=== PATIENT | male | born 1965 | race Caucasian/White ===

== ENCOUNTER 2018-10-22 16:05 | Inpatient (IN) | payer OTHER, MEDICAID ==
[2018-10-22 19:34] LABS: ADD MAN DIFF? NO
[2018-10-22 19:35] LABS: WHITE BLOOD COUNT 8.9 10^3/ul (4.8-10.8)
[2018-10-22 19:35] LABS: BASOPHIL # 0.1 10^3/ul (0.0-0.1); BASOPHILS % 0.7 % (0.0-2.0); EOSINOPHILS # 0.3 10^3/ul (0.0-0.5); HEMATOCRIT 43.9 % (42.0-52.0); HEMOGLOBIN 14.1 g/dl (14.0-18.0); LYMPHOCYTES # 2.1 10^3/ul (0.8-2.9); LYMPHOCYTES % 23.1 % (15.0-51.0); MEAN CORPUSCULAR HEMOGLOBIN 29.3 pg (29.0-33.0); MEAN CORPUSCULAR HGB CONC 32.1 g/dl (32.0-37.0); MEAN CORPUSCULAR VOLUME 91.1 fl (82.0-101.0); MEAN PLATELET VOLUME 9.5 fl (7.4-10.4); MONOCYTE # 0.6 10^3/ul (0.3-0.9); NEUTROPHIL # 5.9 10^3/ul (1.6-7.5); NEUTROPHILS % 65.6 % (39.0-77.0); PLATELET COUNT 362 10^3/UL (140-415); RED BLOOD COUNT 4.82 10^6/ul (4.70-6.10); RED CELL DISTRIBUTION WIDTH 12.4 % (11.5-14.5)
[2018-10-22] MEDS: PIPER-TAZO 3.375 GM IV (PMX) 100 ML IVPB (19:42)
[2018-10-22] MEDS: SOD CHLORIDE 0.9% 500 ML IV (19:42)
[2018-10-22] MEDS: KETOROLAC 15 MG INJ IV (19:42)
[2018-10-22 19:53] LABS: ALANINE AMINOTRANSFERASE 21 IU/L (13-69); ALBUMIN 4.3 g/dl (3.3-4.9); ALBUMIN/GLOBULIN RATIO 1.13; ALKALINE PHOSPHATASE 116 IU/L (42-121); ANION GAP 8 (5-13); ASPARTATE AMINO TRANSFERASE 19 IU/L (15-46); BILIRUBIN,INDIRECT 0.6 mg/dl (0-1.1); BILIRUBIN,TOTAL 0.6 mg/dl (0.2-1.3); BLOOD UREA NITROGEN 25 mg/dl (7-20); CALCIUM 9.5 mg/dl (8.4-10.2); CARBON DIOXIDE 26 mmol/L (21-31); CHLORIDE 105 mmol/L (97-110); CREATININE 1.14 mg/dl (0.61-1.24); Estimated GFR > 60 mL/min (>60); GLUCOSE 96 mg/dl (70-220); LIPASE 150 U/L (23-300); POTASSIUM 4.2 mmol/L (3.5-5.1); SODIUM 139 mmol/L (135-144); TOTAL PROTEIN 8.1 g/dl (6.1-8.1)
[2018-10-22] MEDS: VANCOMYCIN 1 GM (PMX) 250 ML IVPB (19:54)
[2018-10-22 19:55] LABS: INR 0.89; PROTIME 12.1 Sec (11.9-14.9); PT RATIO 0.9
[2018-10-22 19:56] LABS: PARTIAL THROMBOPLASTIN TIME 29.3 Sec (23.0-35.0)
[2018-10-22] MEDS ORDERED: ZOLPIDEM 5 MG TAB PO (23:30)
[2018-10-22] MEDS ORDERED: ACETAMINOPHEN 325 MG TAB PO (23:30)
[2018-10-23] MEDS: CEFTRIAXONE 1 GM/50 ML (PMX) 50 ML IVPB ×2 (00:51→23:45)
[2018-10-23] MEDS: ENOXAPARIN 40 MG/0.4 ML SYG SC ×2 (01:00→09:00)
[2018-10-23] MEDS ORDERED: PANTOPRAZOLE 40 MG INJ IV (06:00)
[2018-10-23 06:12] LABS: ADD MAN DIFF? NO
[2018-10-23 06:16] LABS: WHITE BLOOD COUNT 6.8 10^3/ul (4.8-10.8)
[2018-10-23 06:16] LABS: BASOPHIL # 0.1 10^3/ul (0.0-0.1); BASOPHILS % 1.2 % (0.0-2.0); EOSINOPHILS # 0.3 10^3/ul (0.0-0.5); EOSINOPHILS % 4.3 % (0.0-7.0); HEMATOCRIT 43.2 % (42.0-52.0); HEMOGLOBIN 13.4 g/dl (14.0-18.0); LYMPHOCYTES # 1.9 10^3/ul (0.8-2.9); LYMPHOCYTES % 27.8 % (15.0-51.0); MEAN CORPUSCULAR HEMOGLOBIN 28.9 pg (29.0-33.0); MEAN CORPUSCULAR VOLUME 93.1 fl (82.0-101.0); MEAN PLATELET VOLUME 9.5 fl (7.4-10.4); MONOCYTE # 0.8 10^3/ul (0.3-0.9); MONOCYTES % 11.8 % (0.0-11.0); NEUTROPHIL # 3.7 10^3/ul (1.6-7.5); NEUTROPHILS % 54.5 % (39.0-77.0); PLATELET COUNT 309 10^3/UL (140-415); RED BLOOD COUNT 4.64 10^6/ul (4.70-6.10); RED CELL DISTRIBUTION WIDTH 12.4 % (11.5-14.5)
[2018-10-23 07:00] LABS: ANION GAP 8 (5-13); BLOOD UREA NITROGEN 30 mg/dl (7-20); CARBON DIOXIDE 26 mmol/L (21-31); CHLORIDE 106 mmol/L (97-110); CREATININE 1.15 mg/dl (0.61-1.24); Estimated GFR > 60 mL/min (>60); GLUCOSE 96 mg/dl (70-220); POTASSIUM 4.3 mmol/L (3.5-5.1); SODIUM 140 mmol/L (135-144)
[2018-10-23] MEDS: FAMOTIDINE 20 MG INJ IV (09:40)
[2018-10-23] MEDS ORDERED: VANCOMYCIN IV PER PHARMACY XX (13:30)
[2018-10-23] MEDS: CHOLECALCIFEROL 1,000 UNIT TAB PO (13:38)
[2018-10-23] MEDS: LISINOPRIL 20 MG TAB PO (13:38)
[2018-10-23] MEDS: NICOTINE (14 MG/24 HR) PATCH TRANSDERM (13:43)
[2018-10-23] MEDS: VANCOMYCIN HCL 2 GM in SOD CHLORIDE 0.9% 500 ML IVPB (17:54)
[2018-10-23] MEDS: morphine 2 MG INJ IV (19:50)
[2018-10-23] MEDS: FAMOTIDINE 20 MG TAB PO (21:42)
[2018-10-23] MEDS: DAKINS 0.0125%(1/40) 473 ML SOLUTION TP (22:04)
[2018-10-23] MEDS: CLOTRIMAZOLE 1% 30 GM CR TOP (22:04)
[2018-10-23] MEDS: AMMONIUM LACTATE 12% 225 GM LOT TOP (22:04)
[2018-10-24] MEDS: morphine 2 MG INJ IV ×2 (04:16→20:35)
[2018-10-24] MEDS: VANCOMYCIN 1.5 GM/NS 250 ML 250 ML IVPB ×2 (08:57→20:32)
[2018-10-24] MEDS: FAMOTIDINE 20 MG TAB PO ×2 (08:58→20:32)
[2018-10-24] MEDS: CYANOCOBALAMIN 500 MCG TAB PO (08:58)
[2018-10-24] MEDS: CHOLECALCIFEROL 1,000 UNIT TAB PO (08:58)
[2018-10-24] MEDS ORDERED: DAKINS 0.0125%(1/40) 473 ML SOLUTION TP (09:00)
[2018-10-24] MEDS ORDERED: CLOTRIMAZOLE 1% 30 GM CR TOP (09:00)
[2018-10-24] MEDS: LISINOPRIL 20 MG TAB PO (09:00)
[2018-10-24] MEDS ORDERED: AMMONIUM LACTATE 12% 225 GM LOT TOP (09:00)
[2018-10-24] MEDS: NICOTINE (14 MG/24 HR) PATCH TRANSDERM (09:01)
[2018-10-24] MEDS: ENOXAPARIN 40 MG/0.4 ML SYG SC (09:02)
[2018-10-24] MEDS: CLOTRIMAZOLE 1% 30 GM CR TOP (09:11)
[2018-10-24] MEDS: DAKINS 0.0125%(1/40) 473 ML SOLUTION TP (09:11)
[2018-10-24] MEDS: AMMONIUM LACTATE 12% 225 GM LOT TOP (09:11)
[2018-10-25] MEDS: CEFTRIAXONE 1 GM/50 ML (PMX) 50 ML IVPB (00:03)
[2018-10-25 07:31] LABS: ADD MAN DIFF? NO
[2018-10-25 07:33] LABS: BASOPHIL # 0.1 10^3/ul (0.0-0.1); EOSINOPHILS # 0.3 10^3/ul (0.0-0.5); EOSINOPHILS % 3.4 % (0.0-7.0); HEMATOCRIT 48.8 % (42.0-52.0); HEMOGLOBIN 15.3 g/dl (14.0-18.0); LYMPHOCYTES # 1.6 10^3/ul (0.8-2.9); LYMPHOCYTES % 20.2 % (15.0-51.0); MEAN CORPUSCULAR HEMOGLOBIN 28.9 pg (29.0-33.0); MEAN CORPUSCULAR HGB CONC 31.4 g/dl (32.0-37.0); MEAN CORPUSCULAR VOLUME 92.1 fl (82.0-101.0); MEAN PLATELET VOLUME 9.6 fl (7.4-10.4); MONOCYTE # 0.7 10^3/ul (0.3-0.9); MONOCYTES % 8.4 % (0.0-11.0); NEUTROPHIL # 5.2 10^3/ul (1.6-7.5); NEUTROPHILS % 66.5 % (39.0-77.0); PLATELET COUNT 330 10^3/UL (140-415); RED CELL DISTRIBUTION WIDTH 12.3 % (11.5-14.5)
[2018-10-25 07:33] LABS: WHITE BLOOD COUNT 7.8 10^3/ul (4.8-10.8)
[2018-10-25 08:07] LABS: ANION GAP 7 (5-13); BLOOD UREA NITROGEN 20 mg/dl (7-20); CALCIUM 9.8 mg/dl (8.4-10.2); CARBON DIOXIDE 33 mmol/L (21-31); CHLORIDE 101 mmol/L (97-110); CREATININE 0.95 mg/dl (0.61-1.24); Estimated GFR > 60 mL/min (>60); GLUCOSE 98 mg/dl (70-220); POTASSIUM 4.6 mmol/L (3.5-5.1); SODIUM 141 mmol/L (135-144)
[2018-10-25 08:08] LABS: MAGNESIUM 1.8 mg/dl (1.7-2.5)
[2018-10-25 08:08] LABS: PHOSPHORUS 4.1 mg/dl (2.5-4.9); VANCOMYCIN,TROUGH 10.7 ug/ml (10.0-20.0)
[2018-10-25] MEDS: CYANOCOBALAMIN 500 MCG TAB PO (08:56)
[2018-10-25] MEDS: FAMOTIDINE 20 MG TAB PO ×2 (08:56→20:17)
[2018-10-25] MEDS: CHOLECALCIFEROL 1,000 UNIT TAB PO (08:56)
[2018-10-25] MEDS: LISINOPRIL 20 MG TAB PO (08:56)
[2018-10-25] MEDS: DAKINS 0.0125%(1/40) 473 ML SOLUTION TP (08:57)
[2018-10-25] MEDS: NICOTINE (14 MG/24 HR) PATCH TRANSDERM (08:57)
[2018-10-25] MEDS: CLOTRIMAZOLE 1% 30 GM CR TOP (08:57)
[2018-10-25] MEDS: AMMONIUM LACTATE 12% 225 GM LOT TOP (08:57)
[2018-10-25] MEDS: ENOXAPARIN 40 MG/0.4 ML SYG SC (08:58)
[2018-10-25] MEDS: VANCOMYCIN 1.5 GM/NS 250 ML 250 ML IVPB ×2 (09:31→20:17)
[2018-10-25] MEDS: morphine 2 MG INJ IV ×3 (09:33→20:17)
[2018-10-26] MEDS: CEFTRIAXONE 1 GM/50 ML (PMX) 50 ML IVPB (00:26)
[2018-10-26] MEDS: morphine 2 MG INJ IV ×3 (02:41→14:26)
[2018-10-26] MEDS: CLOTRIMAZOLE 1% 30 GM CR TOP (09:00)
[2018-10-26] MEDS: AMMONIUM LACTATE 12% 225 GM LOT TOP (09:00)
[2018-10-26] MEDS: DAKINS 0.0125%(1/40) 473 ML SOLUTION TP (09:00)
[2018-10-26] MEDS: NICOTINE (14 MG/24 HR) PATCH TRANSDERM (09:14)
[2018-10-26] MEDS: CHOLECALCIFEROL 1,000 UNIT TAB PO (09:14)
[2018-10-26] MEDS: CYANOCOBALAMIN 500 MCG TAB PO (09:15)
[2018-10-26] MEDS: FAMOTIDINE 20 MG TAB PO (09:15)
[2018-10-26] MEDS: LISINOPRIL 20 MG TAB PO (09:15)
[2018-10-26] MEDS: ENOXAPARIN 40 MG/0.4 ML SYG SC (09:21)
[2018-10-26] MEDS: VANCOMYCIN 1.5 GM/NS 250 ML 250 ML IVPB (10:56)
== END 2018-10-26 17:31 | disposition home health service (06) | DRG 603 ==
LOC: E/R 16:05 → PP2 20:44
DX: L03.116 Cellulitis of left lower limb (principal); B35.3 Tinea pedis; I10 Essential (primary) hypertension; J44.9 Chronic obstructive pulmonary disease, unspecified; F17.200 Nicotine dependence, unspecified, uncomplicated; L40.9 Psoriasis, unspecified; Z85.51 Personal history of malignant neoplasm of bladder
CPT/HCPCS: 36415; 80048; 80053; 80202; 83690; 83735; 84100; 85025; 85610; 85730; 93922; 93970; 96374; 96375; 99285-25